=== PATIENT | male | born 1965 | race Caucasian/White ===

== ENCOUNTER 2017-12-31 12:59 | Emergency (ER) | payer OTHER ==
[~2017-12-31] VITALS: Ht 182.9 cm; Wt 72.6 kg
--- NOTE | ~2017-12-31 | EKG ---
[place] [address] [facility] [place] [employer] [place] [address] ELECTROCARDIOGRAM REPORT Name: LISBET GARCIA Room #: DEP Pattie#: [id number] Admission: 12/31/17 Attend Phys: Discharge: 12/31/17 Date of : 61 Report #: [id number] THIS REPORT FOR: //name// [facility] ED Test Date: 2017-12-31 Test Time: 14:07:31 Pat Name: LISBET GARCIA Department: Room: Gender: M [employer] Technician: HEATHERNATO : 1965 Requested By: Jelena Joseph Order Number: [id number] MD: Reilly Al Measurements Intervals [place] Rate: 73 P: 77 MT: 172 QRS: 66 QRSD: 99 T: 58 QT: 370 QTc: 408 Interpretive Statements Sinus rhythm No significant abnormality No previous ECG available for comparison Electronically Signed On 01-01-2018 7:32:46 CDT by Reilly Al [email or web address] <ELECTRONICALLY SIGNED> By: Reilly Al MD, [facility] 01/01/18 0732 1407 [id number] Reilly Al MD, FAC /EPI
[2017-12-31] MEDS ORDERED: IBUPROFEN 200200 M1 PO (13:26)
[2017-12-31 14:26] LABS: ABSOLUTE NEUTROPHILS 3.9 thou/uL (1.4-8.2); BASOPHILS 1.3 % (0.0-2.0); EOSINOPHILS 1.9 % (0.0-3.0); HEMATOCRIT 40.3 % (42.0-52.0); HEMOGLOBIN 14.3 gm/dL (14.0-18.0); LYMPHOCYTES 30.9 % (24.0-44.0); MCH 34.6 pg (26.0-34.0); MCHC 35.5 g/dL (28.0-37.0); MCV 97.5 fL (80.0-100.0); MONOCYTES 8.3 % (1.0-8.0); PLATELET COUNT 256 thou/uL (150-400); POLYS 57.6 % (36.0-66.0); RBC 4.13 mil/uL (4.50-6.00); RDW 13.6 % (10.5-14.5); WBC 6.8 thou/uL (4.0-11.0)
[2017-12-31 14:33] LABS: ANION GAP 9 mmol/L (7-16); BUN 9 mg/dL (7-18); CALCIUM 9.2 mg/dL (8.5-10.1); CHLORIDE 102 mmol/L (98-107); CO2 27 mmol/L (21-32); CREATININE 0.7 mg/dL (0.7-1.3); GLUCOSE 106 mg/dL (74-106); POTASSIUM 4.1 mmol/L (3.5-5.1); SODIUM 138 mmol/L (136-145)
[2017-12-31 14:42] LABS: TROPONIN-I <0.06 ng/mL (<0.06)
[2017-12-31 15:15] VITALS: BP 126/72
== END 2017-12-31 15:16 | disposition home or self-care (01) ==
LOC: ER 12:59
PROVIDERS: Emergency Medicine
DX: S02.2XXA Fracture of nasal bones, initial encounter for closed fracture (principal); F07.81 Postconcussional syndrome; F10.129 Alcohol abuse with intoxication, unspecified; F17.210 Nicotine dependence, cigarettes, uncomplicated; Y90.0 Blood alcohol level of less than 20 mg/100 ml; W22.8XXA Striking against or struck by other objects, initial encounter; Y93.89 Activity, other specified; Y92.89 Other specified places as the place of occurrence of the external cause; Y99.8 Other external cause status